=== PATIENT | male | born 1940 | race Caucasian/White ===

== ENCOUNTER 2020-07-16 18:10 | Inpatient (IN) | payer MEDICARE, OTHER ==
[2020-07-16 20:15] VITALS: BMI 31.5
[2020-07-16] MEDS ORDERED: Ondansetron ODT 4 MG TAB PO PRN (20:50)
[2020-07-16] MEDS ORDERED: Acetaminophen 650 MG Suppository PR PRN (20:50)
[2020-07-16] MEDS ORDERED: Ondansetron PF 4 MG/2 ML Vial IVP PRN (20:50)
[2020-07-16] MEDS: D5 1/2 NS w/10 mEq KCl 1,000 ML/1,000 ML BAG IV SCH (21:55)
[2020-07-16 22:21] LABS: Lactic Acid 1.2 mmol/L (0.5-2.2)
[2020-07-17 01:13] LABS: Anion Gap 16 mmol/L (10-20); BUN (Urea Nitrogen) 16 mg/dL (8.4-25.7); Calc. Creatinine Clearance 118 mL/min (70-130); Calcium 7.8 mg/dL (7.8-10.44); Carbon Dioxide 19 mmol/L (23-31); Chloride 108 mmol/L (98-107); Glucose 94 mg/dL (83-110); Potassium 4.5 mmol/L (3.5-5.1); Sodium 138 mmol/L (136-145)
[2020-07-17 05:15] LABS: SARS-CoV-2 PCR by NAA Not Detected (NotDetected)
[2020-07-17 05:27] LABS: #Lymphocytes 1.3 thou/uL (1.20-3.40); #Monocytes 0.4 thou/uL (0.11-0.59); #Neutrophils 3.8 thou/uL (1.40-6.50); %Basophils 0.2 % (0.0-1.0); %Eosinophils 0.9 % (0.0-10.0); %Lymphocytes 23.9 % (21.0-51.0); %Monocytes 7.5 % (0.0-10.0); %Neutrophils 67.6 % (42.0-75.0); Hemoglobin 13.9 g/dL (14.0-18.0); Mean Corpuscular HGB CONC 33.4 g/dL (32.0-36.0); Mean Corpuscular Hemoglobin 30.7 pg (27.0-31.0); Mean Corpuscular Volume 91.7 fL (78.0-98.0); Mean Platelet Volume 8.5 fL (7.4-10.4); Platelet Count 146 thou/uL (130-400); RBC Distribution Width 13.1 % (11.5-14.5); Red Blood Cell (RBC) Count 4.54 mill/uL (4.70-6.10); White Blood Cell (WBC) Count 5.5 thou/uL (4.8-10.8)
[2020-07-17] MEDS: D5 1/2 NS w/10 mEq KCl 1,000 ML/1,000 ML BAG IV SCH ×3 (05:58→22:35)
[2020-07-17] MEDS: Pantoprazole 40 MG VIAL IVP SCH (08:05)
[2020-07-17] MEDS ORDERED: Magnesium 2 GM/50 ML 2 GM in Premix Bag 1 BAG IVPB SCH (12:00)
[2020-07-18] MEDS: D5 1/2 NS w/10 mEq KCl 1,000 ML/1,000 ML BAG IV SCH ×2 (05:35→14:00)
[2020-07-18] MEDS: Pantoprazole 40 MG VIAL IVP SCH (07:55)
[2020-07-18 11:25] VITALS: BP 137/81; TEMP 97.8
== END 2020-07-18 13:30 | disposition home or self-care (01) | DRG 392 ==
LOC: T4-A 20:06
PROVIDERS: ADMIT Internal Medicine; ATTEND Hospitalist
DX: A05.9 Bacterial foodborne intoxication, unspecified (principal); I10 Essential (primary) hypertension; G51.0 Bell's palsy; R50.9 Fever, unspecified; K57.90 Diverticulosis of intestine, part unspecified, without perforation or abscess without bleeding; R59.0 Localized enlarged lymph nodes; Z20.822 Contact with and (suspected) exposure to COVID-19; E66.9 Obesity, unspecified; Z90.49 Acquired absence of other specified parts of digestive tract; Z87.891 Personal history of nicotine dependence; Z68.31 Body mass index [BMI] 31.0-31.9, adult
CPT/HCPCS: 36415; 83605; 83735; 84443; 85025; 87045; 87046; 87077; 87324; 87328; 87329; 87427; 87449; 87635; C9113; J3475; J3480; U0003; U0005